=== PATIENT | female | born 1925 | race Caucasian/White ===

== ENCOUNTER 2016-06-12 09:37 | Emergency (ER) | payer MEDICARE, OTHER ==
[~2016-06-12 09:37] MED LIST: ALPRAZOLAM PO; AMLODIPINE BESY10 MG PO; AMLODIPINE BESYL5 MG PO; AMOXICILLIN500 M1 PO; ASPIRIN EC81 M1 PO; ASPIRIN PO; ASPIRIN81 M1 PO; CIPRO PO; DEXILANT60 MG PO; FLAGYL PO; K-DUR20 ME1 PO; KCL PO; LASIX20 MG PO; LEVOTHROID25 MCG PO; LEVOTHYROXINE50 MCG PO; LIVALO4 MG PO; LOMOTIL WHITE2.5 M1 PO; LOPID600 MG PO; LORTAB 5/500 TA1 TA1 PO; MAXIDE; METOPROLOL SUCC ER; METOPROLOL SUCC50 MG PO; NORCO 5/325 TAB1 TAB; NORVASC PO; PANTOPRAZOLE SO40 MG PO; PHENERGAN PO; POTASSIUM CHLORIDE; PYRIDIUM PO; RESTORIL15 MG PO; SIMVASTATIN40 MG PO; TOPROL XL PO; TRAZODONE PO; TRIAMTERENE-HC1 EACH PO; TYLENOL #3 PO; UCERIS9 MG PO; VITAMIN D50000 UNIT PO; ZOCOR PO; [UNRECOGNIZED DRUG - OTHER] PO
[2016-06-12 09:59] LABS: BASOPHIL# 0.1 X10e3 (0-0.3); BASOPHIL% 0.6 % (0-2.5); EOSINOPHIL% 0.1 % (0.0-7.0); HEMATOCRIT 43.1 % (35.0-45.0); HEMOGLOBIN 14.7 gm/dL (12.0-16.0); LYMPHOCYTE# 1.4 X10e3 (1.0-3.5); LYMPHOCYTE% 9.9 % (17.0-45.0); MEAN CELL VOLUME 101.6 FL (83-96); MEAN CORPUSCULAR HEMOGLOBIN 34.7 PG (28-34); MEAN CORPUSCULAR HGB CONC 34.1 g/dL (30-36); MEAN PLATELET VOLUME 8.1 FL (6.5-11.5); MONOCYTE# 0.9 X10e3 (0-1.0); MONOCYTE% 6.3 % (3.0-12.0); NEUTROPHIL% 83.1 % (40-75); PLATELET COUNT 168 X10e3 (140-420); RED BLOOD COUNT 4.24 X10e (3.90-5.30); RED CELL DISTRIBUTION WIDTH 13.5 % (11.0-15.5); WHITE BLOOD COUNT 14.4 X10e3 (4.0-10.5)
[2016-06-12 10:02] LABS: DIFF IND NO
[2016-06-12 10:17] LABS: CALCIUM SERUM 9.5 mg/dL (8.4-10.2); GLOM FILT RATE Estimated 49.9 mL/min (>60); POTASSIUM 4.2 mmol/L (3.5-5.1)
== END 2016-06-12 13:00 | disposition home or self-care (01) ==
LOC: SED 09:37
PROVIDERS: Emergency Medicine
DX: L03.116 Cellulitis of left lower limb (principal); I25.2 Old myocardial infarction; K21.9 Gastro-esophageal reflux disease without esophagitis; I10 Essential (primary) hypertension; M19.90 Unspecified osteoarthritis, unspecified site; K52.9 Noninfective gastroenteritis and colitis, unspecified
CPT/HCPCS: 36415; 80048; 83880; 85025; 96365; 99284

== ENCOUNTER → 2016-07-27 | Outpatient (CLI) | payer MEDICARE, OTHER ==
--- NOTE | ~2016-07-27 | CT4 ---
[facility] A Service of [facility] RADIOLOGY TEXT RESULTS PATIENT: FAISAL SERRANO LOCATION: [facility] : [birth year] UNIT #: [id number] AGE: [address]: Renae Murrieta APRN SEX: F ORDER DR: [id number] [place] [id number] O MR#: [id number] #: [id number] NAME: FAISAL SERRANO. : 1925 SEX: F STUDY DATE/TIME: 07/27/2016 10:22 UNIT: [facility] ROOM: STUDY DESCRIPTION: CT Abd and Pelv Wo Cont Attending Physician: Renae Murrieta A.P.R.N. Referring Physician: Renae Murrieta A.P.R.N. Ordering Physician: Renae Murrieta A.P.R.N. Primary Care Physician: Malia Anne M.D. MEDICAL IMAGING REPORT This report is preliminary unless electronic signature is present. EXAM CT abdomen and pelvis without contrast INDICATIONS Generalized abdominal pain for the past [address] of the abdomen and pelvis The CT exam was performed with one or more of the following radiation dose reduction techniques: automatic exposure control, adjustment of mA and/or kV according to patient size, and iterative reconstruction. COMPARISON 06/01/2015 FINDINGS Abdomen without contrast: Scattered areas of scarring in the lung bases. Coronary artery calcification. The liver, spleen, kidneys, adrenal glands, pancreas and gallbladder have an unremarkable unenhanced appearance. Moderate sized hiatal hernia. Bowel loops are nondilated. There are a few diverticula in the sigmoid colon without definitive evidence for active complication. No abdominal fluid collection. Heavy atherosclerotic calcification abdominal aorta. Pelvis without contrast:. No pelvic mass or fluid. No aggressive appearing bone lesion. IMPRESSION 1. No definite acute findings. 2. Sigmoid diverticula without definitive evidence for complication. [facility] A Service [facility] RADIOLOGY TEXT RESULTS PATIENT: FAISAL SERRANO LOCATION: [facility] #: [id number] : [birth year] UNIT #: [id number] AGE: [address]: Renae Murrieta APRN SEX: F ORDER DR: Note that earlier mild diverticulitis can be CT occult. If the patient's symptoms persist repeat imaging may be warranted. 3. Heavy atherosclerotic calcification coronary arteries and included portions of the aorta. 4. Moderate sized hiatal hernia. Dictated by... Marlon Dye M.D. THIS IS AN ELECTRONICALLY VERIFIED REPORT Marlon Dye M.D. at 07/29/2016 10:09 PM PHILIP/britney TD: 07/27/2016 13:46 JOB #: [id number] MEDICAL IMAGING REPORT Page 1 of 1
== END | disposition home or self-care (01) ==
LOC: SCT 10:08
DX: K57.30 Diverticulosis of large intestine without perforation or abscess without bleeding (principal); K44.9 Diaphragmatic hernia without obstruction or gangrene; I25.10 Atherosclerotic heart disease of native coronary artery without angina pectoris
CPT/HCPCS: 74176